=== PATIENT | male | born 1955 | race Caucasian/White ===

== ENCOUNTER 2021-07-29 04:59 | Inpatient (IN) ==
[2021-07-29 05:44] LABS: Bilirubin,Urine Negative (Negative); Blood,Urine Negative (Negative); Clarity,Urine Clear (Clear); Color,Urine Colorless (Yellow); Glucose,Urine (UA) Normal (Normal); Ketones,Urine Negative (Negative); Leukocyte Esterase,Urine Negative (Negative); Nitrite,Urine Negative (Negative); Protein,Urine Negative (Neg-Trace); Specific Gravity,Urine 1.011 (1.010-1.025); Urobilinogen,Urine Normal (Normal)
[2021-07-29 05:47] LABS: Basophils % 0.2 %; Eosinophils # 0.1 K/mcL (0.0-0.6); Eosinophils % 2.2 %; Hematocrit 30.3 % (37.5-50.1); Hemoglobin 10.9 g/dL (12.9-16.9); Immature Granulocytes % 0.2 % (0-4); Immature Platelets 1.7 % (1.1-6.1); Lymphocytes # 1.1 K/mcL (0.6-4.6); Lymphocytes % 22.9 %; Mean Corpuscular Hemoglobin 32.4 pg (28.0-33.3); Mean Corpuscular Volume 90.2 fL (83.0-100.0); Mean Platelet Volume 9.2 fL (9.4-12.4); Monocytes # 0.5 K/mcL (0.0-1.3); Monocytes % 11.1 %; Neutrophils # 2.9 K/mcL (1.6-8.9); Platelet Count 111 K/mcL (140-400); Red Blood Count 3.36 M/mcL (4.19-5.50); Red Cell Distribution Width 11.8 % (11.5-14.5); Segmented Neutrophils % 63.4 %; White Blood Count 4.6 K/mcL (4.3-11.1)
[2021-07-29] MEDS ORDERED: Isovue-370 500 ML BOTTLE IVP ONE (06:02)
[2021-07-29] MEDS ORDERED: GI Cocktail 40 ML EACH PO ONE (06:03)
[2021-07-29 06:05] LABS: Calcium 11.3 mg/dL (8.6-10.3)
[2021-07-29] MEDS ORDERED: 0.9 % Sodium Chloride 500 ML IVC ONE (10:43)
[2021-07-29] MEDS ORDERED: Ondansetron 4 MG/2 ML VIAL IVP PRN (10:55)
[2021-07-29] MEDS ORDERED: Naloxone 0.4 MG/ML INJ IVP PRN (10:55)
[2021-07-29] MEDS ORDERED: Ringers Solution, Lactated 1,000 ML IVC SCH (11:00)
[2021-07-29] MEDS ORDERED: D5% in Water 1,000 ML IVC PRN (12:29)
[2021-07-29] MEDS ORDERED: Dextrose Gel 15 GM/37.5 ML TUBE PO PRN ×2 (12:29)
[2021-07-29 13:08] LABS: Albumin 3.9 g/dL (3.5-5.7); Bilirubin,Total 0.9 mg/dL (0.3-1.0); Calcium 11.7 mg/dL (8.6-10.3); Globulin 3.8 g/dL (2.4-3.5); Potassium 4.5 mEq/L (3.5-5.1); Total Protein 7.7 g/dL (6.4-8.9)
[2021-07-29 15:13] LABS: Uric Acid 9.6 mg/dL (2.3-7.6)
[2021-07-29] MEDS ORDERED: Insulin LISPRO 300 UNITS/3 ML VIAL SUBQ SCH (16:30)
[2021-07-29] MEDS: *HR* Heparin 5,000 UNIT/ML VIAL SQ SCH (17:58)
[2021-07-29] MEDS: traZODone 50 MG TABLET PO SCH (21:04)
[2021-07-30 06:27] LABS: Immature Granulocytes % 0.3 % (0-4); Mean Platelet Volume 10.2 fL (9.4-12.4); Red Cell Distribution Width 11.8 % (11.5-14.5)
[2021-07-30 06:29] LABS: Basophils % 0.6 %; Eosinophils # 0.1 K/mcL (0.0-0.6); Eosinophils % 2.5 %; Hematocrit 25.7 % (37.5-50.1); Hemoglobin 9.3 g/dL (12.9-16.9); Immature Platelets 2.6 % (1.1-6.1); Immature Reticulocyte % 5.9 % (11.0-38.0); Lymphocytes # 0.9 K/mcL (0.6-4.6); Lymphocytes % 28.4 %; Mean Corpuscular HGB Conc 36.2 g/dL (31.6-35.5); Mean Corpuscular Hemoglobin 32.6 pg (28.0-33.3); Mean Corpuscular Volume 90.2 fL (83.0-100.0); Monocytes # 0.3 K/mcL (0.0-1.3); Monocytes % 9.6 %; Neutrophils # 1.9 K/mcL (1.6-8.9); Platelet Count 78 K/mcL (140-400); Red Blood Count 2.85 M/mcL (4.19-5.50); Retculocyte # 0.03 M/mcL (0.05-0.10); Segmented Neutrophils % 58.6 %; White Blood Count 3.2 K/mcL (4.3-11.1)
[2021-07-30 06:35] LABS: INR 1.1; Prothrombin Time 11.8 Seconds (9.4-12.1)
[2021-07-30 06:37] LABS: Activated Partial Thrombo Time 22.4 Seconds (26.0-36.0)
[2021-07-30 06:45] LABS: Calcium 12.1 mg/dL (8.6-10.3); Magnesium 2.3 mg/dL (1.6-2.6); Phosphorous 4.8 mg/dL (2.7-4.5); Potassium 4.5 mEq/L (3.5-5.1)
[2021-07-30 06:46] LABS: Albumin 3.4 g/dL (3.5-5.7); Albumin/Globulin Ratio 1.1 (1.1-2.2); Bilirubin,Direct 0.1 mg/dL (0.0-0.2); Bilirubin,Indirect 0.5 mg/dL (0.0-1.0); Bilirubin,Total 0.6 mg/dL (0.3-1.0); Globulin 3.1 g/dL (2.4-3.5); Total Protein 6.5 g/dL (6.4-8.9)
[2021-07-30 06:49] LABS: Transferrin 158 mg/dL (203-362)
[2021-07-30 07:06] LABS: Ferritin 544 ng/mL (20-250)
[2021-07-30 07:11] LABS: Folate 20.9 ng/mL (3.0-16.0)
[2021-07-30] MEDS: *HR* Heparin 5,000 UNIT/ML VIAL SQ SCH ×3 (07:46→18:27)
[2021-07-30] MEDS ORDERED: Naloxone 0.4 MG/ML INJ IVP PRN (07:57)
[2021-07-30] MEDS ORDERED: Acetaminophen 325 MG TABLET PO PRN (07:57)
[2021-07-30] MEDS ORDERED: Melatonin 3 MG TABLET PO PRN (07:57)
[2021-07-30] MEDS ORDERED: *HR* Glimepiride 2 MG TABLET PO SCH (08:00)
[2021-07-30] MEDS ORDERED: Cyanocobalamin (B-12) 1,000 MCG/ML VIAL SQ ONE (10:24)
[2021-07-30 13:01] LABS: % Iron Saturation 43 % (20-55); Iron 96 mcg/dL (65-175)
[2021-07-30] MEDS: Ringers Solution, Lactated 1,000 ML IVC SCH (17:16)
[2021-07-30] MEDS: traZODone 50 MG TABLET PO SCH (19:59)
[2021-07-31 01:44] LABS: Hemoglobin 9.4 g/dL (12.9-16.9)
[2021-07-31 01:46] LABS: Hematocrit 25.8 % (37.5-50.1); Immature Platelets 2.2 % (1.1-6.1); Mean Corpuscular HGB Conc 36.4 g/dL (31.6-35.5); Mean Corpuscular Hemoglobin 32.6 pg (28.0-33.3); Mean Corpuscular Volume 89.6 fL (83.0-100.0); Red Blood Count 2.88 M/mcL (4.19-5.50); Red Cell Distribution Width 11.7 % (11.5-14.5); White Blood Count 3.3 K/mcL (4.3-11.1)
[2021-07-31 01:58] LABS: Calcium 12.4 mg/dL (8.6-10.3); Complement C3 94 mg/dL (87-200); INR 1.1; Magnesium 2.1 mg/dL (1.6-2.6); Phosphorous 4.2 mg/dL (2.7-4.5); Potassium 4.2 mEq/L (3.5-5.1); Prothrombin Time 12.1 Seconds (9.4-12.1)
[2021-07-31 02:01] LABS: Activated Partial Thrombo Time 31.5 Seconds (26.0-36.0)
[2021-07-31] MEDS: *HR* Heparin 5,000 UNIT/ML VIAL SQ SCH ×2 (05:45→18:54)
[2021-07-31] MEDS: Ringers Solution, Lactated 1,000 ML IVC SCH (05:46)
[2021-07-31] MEDS: amLODIPine 5 MG TABLET PO SCH (07:23)
[2021-07-31] MEDS: *HR* Dextrose 50 % in Water (Syg) 50 ML SYRINGE IVP PRN ×2 (07:29→11:46)
[2021-07-31 09:22] LABS: Lambda Qnt Free Light Chains 62.38 mg/L (5.71-26.30)
[2021-07-31] MEDS ORDERED: 0.9 % Sodium Chloride 500 ML ONE (11:50)
[2021-07-31] MEDS ORDERED: *HR* Midazolam HCl 2 MG/2 ML VIAL IVP ONE (11:54)
[2021-07-31] MEDS ORDERED: *HR* FentaNYL (PF) 100 MCG/2 ML VIAL IVP ONE (11:54)
[2021-07-31 15:46] LABS: Total Volume 24 Hour,Urine 3.76 Liters (0.80-1.80)
[2021-07-31] MEDS ORDERED: Calcitonin-Salmon, Synthetic 400 UNIT/2 ML VIAL SQ SCH (21:00)
[2021-07-31] MEDS: traZODone 50 MG TABLET PO SCH (21:51)
[2021-07-31] MEDS: Lactulose Oral Soln 20 GM/30 ML UDC PO SCH (21:51)
[2021-07-31 22:34] LABS: Hepatitis B Surface Antigen Nonreactive (Nonreactive)
[2021-07-31 23:03] LABS: Hepatitis B Core IgM Nonreactive (Nonreactive)
[2021-07-31 23:04] LABS: Hepatitis A Antibody IgM Nonreactive (Nonreactive)
[2021-08-01] MEDS: Calcitonin-Salmon, Synthetic 400 UNIT/2 ML VIAL SQ SCH ×3 (01:05→20:49)
[2021-08-01 02:05] LABS: Basophils % 0.3 %; Hematocrit 24.4 % (37.5-50.1); Immature Granulocytes % 0.3 % (0-4); Mean Corpuscular HGB Conc 36.9 g/dL (31.6-35.5); Mean Corpuscular Hemoglobin 32.7 pg (28.0-33.3); Mean Corpuscular Volume 88.7 fL (83.0-100.0); Red Blood Count 2.75 M/mcL (4.19-5.50); Red Cell Distribution Width 11.9 % (11.5-14.5)
[2021-08-01 02:07] LABS: Eosinophils # 0.1 K/mcL (0.0-0.6); Eosinophils % 2.5 %; Immature Platelets 2.3 % (1.1-6.1); Lymphocytes % 31.1 %; Mean Platelet Volume 10.1 fL (9.4-12.4); Monocytes # 0.3 K/mcL (0.0-1.3); Monocytes % 8.1 %; Neutrophils # 1.9 K/mcL (1.6-8.9); Segmented Neutrophils % 57.7 %; White Blood Count 3.2 K/mcL (4.3-11.1)
[2021-08-01 02:09] LABS: Platelet Count 78 K/mcL (140-400)
[2021-08-01 02:14] LABS: INR 1.1; Prothrombin Time 11.8 Seconds (9.4-12.1)
[2021-08-01 02:23] LABS: Albumin 3.3 g/dL (3.5-5.7); Bilirubin,Direct 0.2 mg/dL (0.0-0.2); Bilirubin,Indirect 0.4 mg/dL (0.0-1.0); Bilirubin,Total 0.6 mg/dL (0.3-1.0); Calcium 12.8 mg/dL (8.6-10.3); Globulin 3.2 g/dL (2.4-3.5); Magnesium 1.9 mg/dL (1.6-2.6); Phosphorous 4.2 mg/dL (2.7-4.5); Potassium 4.2 mEq/L (3.5-5.1); Total Protein 6.5 g/dL (6.4-8.9)
[2021-08-01 04:59] LABS: Hepatitis C Virus Antibody Reactive (Nonreactive)
[2021-08-01] MEDS: *HR* Heparin 5,000 UNIT/ML VIAL SQ SCH ×2 (06:02→16:41)
[2021-08-01] MEDS: Lactulose Oral Soln 20 GM/30 ML UDC PO SCH ×2 (08:20→20:37)
[2021-08-01] MEDS: amLODIPine 5 MG TABLET PO SCH (08:20)
[2021-08-01] MEDS: traZODone 50 MG TABLET PO SCH (20:37)
[2021-08-02] MEDS: *HR* Heparin 5,000 UNIT/ML VIAL SQ SCH ×2 (05:23→16:36)
[2021-08-02 06:36] LABS: Hemoglobin 9.3 g/dL (12.9-16.9); Red Cell Distribution Width 11.9 % (11.5-14.5)
[2021-08-02 06:38] LABS: Basophils % 0.5 %; Eosinophils # 0.1 K/mcL (0.0-0.6); Eosinophils % 2.6 %; Hematocrit 25.2 % (37.5-50.1); Immature Granulocytes % 0.5 % (0-4); Immature Platelets 2.5 % (1.1-6.1); Lymphocytes # 1.2 K/mcL (0.6-4.6); Lymphocytes % 28.2 %; Mean Corpuscular HGB Conc 36.9 g/dL (31.6-35.5); Mean Corpuscular Hemoglobin 32.6 pg (28.0-33.3); Mean Corpuscular Volume 88.4 fL (83.0-100.0); Monocytes # 0.4 K/mcL (0.0-1.3); Neutrophils # 2.5 K/mcL (1.6-8.9); Red Blood Count 2.85 M/mcL (4.19-5.50); Segmented Neutrophils % 59.2 %; White Blood Count 4.2 K/mcL (4.3-11.1)
[2021-08-02 06:41] LABS: Platelet Count 96 K/mcL (140-400)
[2021-08-02 06:55] LABS: Calcium 11.6 mg/dL (8.6-10.3); Potassium 4.1 mEq/L (3.5-5.1)
[2021-08-02] MEDS: amLODIPine 5 MG TABLET PO SCH (09:01)
[2021-08-02] MEDS: Lactulose Oral Soln 20 GM/30 ML UDC PO SCH ×2 (09:02→21:00)
[2021-08-02 11:26] LABS: ANA IgG by ELISA NONE DETECTED (None Detected)
[2021-08-02 13:54] LABS: Alpha 2 Globulin (PEP) 0.85 g/dL (0.48-1.05); Beta Globulin (PEP) 0.78 g/dL (0.48-1.10)
[2021-08-02] MEDS: traZODone 50 MG TABLET PO SCH (21:00)
[2021-08-03 01:27] LABS: Calcium 12.2 mg/dL (8.6-10.3); Potassium 4.1 mEq/L (3.5-5.1)
[2021-08-03 04:54] LABS: IFE Reflexed NOT DONE
[2021-08-03] MEDS: amLODIPine 5 MG TABLET PO SCH (09:23)
[2021-08-03] MEDS: Lactulose Oral Soln 20 GM/30 ML UDC PO SCH (09:23)
[2021-08-03 12:01] VITALS: BP 125/86; PULSE 93; TEMP 97.6; O2SAT 96
[2021-08-04 10:05] LABS: Serine Protease-3 Antibody 9 AU/mL (0-19)
== END 2021-08-03 14:38 | disposition home or self-care (01) | DRG 841 ==
LOC: 2ANU 04:59 → EMEROOARM 04:59 → SUATTDRO 14:25 → 2ANU 15:11
PROVIDERS: ADMIT Internal Medicine; ATTEND Internal Medicine